=== PATIENT | male | born 1965 | race Caucasian/White ===

== ENCOUNTER 2017-03-23 08:27 | Emergency (ER) | payer OTHER ==
[2017-03-23 08:37] VITALS: BP 155/87; PULSE 81; TEMP 98.1; BMI 26.9
--- NOTE | 2017-03-23 08:41 | PDOC ---
History of Present Illness - General Chief Complaint: Injury Stated Complaint: LT FINGER INJURY Time Seen by Provider: 03/23/17 08:39 History Source: Patient Exam Limitations: No Limitations - History of Present Illness Initial Comments: 03/23/17 08:49 Pt. is a 52 y/o male with no PMH who presents to the ED c/o L 5th finger pain. 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 He states that he was able to finish working , but he feels his finger "popping" when he hyperextends it. Admits to pain in the finger. Denies numbness, tingling, weakness, and decreased range of motion. Past History - Travel Traveled outside of the country in the last 30 days: No Close contact w/someone who was outside of country & ill: No - Past Medical History Allergies/Adverse Reactions: Allergies Allergy/AdvReac Type Severity Reaction Status Date / Time No Known Allergies Allergy Verified 03/23/17 08:35 Home Medications: Ambulatory Orders NK [No Known Home Medication] 10/22/15 Other medical history: denies - Psycho/Social/Smoking Cessation Hx Anxiety: No Suicidal Ideation: No Smoking History: Never smoked Information on smoking cessation initiated: No Hx Alcohol Use: No Drug/Substance Use Hx: No Substance Use Type: None Review of Systems - Review of Systems Able to Perform ROS?: Yes Is the patient limited Kosovan proficient: No Constitutional: No: Chills, Fever, Malaise, Weakness Musculoskeletal: Yes: Joint Pain (L fifth finger), Joint Swelling (L fifth finger) Integumentary: No: Bruising, Lumps, Rash Neurological: No: Numbness, Paresthesia, Weakness All Other Systems: Reviewed and Negative *Physical Exam - Vital Signs Last Vital Signs Temp Pulse Resp BP Pulse Ox 98.1 F 81 18 155/87 98 03/23/17 08:33 03/23/17 08:33 03/23/17 08:33 03/23/17 08:33 03/23/17 08:33 - Physical Exam General Appearance: Yes: Nourished, Appropriately Dressed. 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 Will r/o fracture 1. X-ray L hand 2. Ibuprofen 600mg 3. Re-evaluate 03/23/17 10:40 X-ray is negative for fracture at this time. Probable finger sprain. Placed in splint and given ortho follow up. Will discharge home at this time. Pt. feels comfortable with discharge plans. Pt. understands all discharge instructions and all questions were answered at this time. *DC/Admit/Observation/Transfer Diagnosis at time of Disposition: Sprain of finger of left hand Qualifiers: Encounter type: initial encounter Finger: little finger Sprain of finger site: metacarpophalangeal joint Qualified Code(s): S63.657A - Sprain of metacarpophalangeal joint of left little finger, initial encounter - Discharge Dispostion Disposition: HOME Condition at time of disposition: Good Admit: No - Referrals Referrals: Nathaniel Banuelos MD [Primary Care Provider] - David Williamson MD [Staff Physician] - - Patient Instructions Printed Discharge Instructions: DI for Finger Sprain Additional Instructions: Your x-ray was negative today. It is most likely a sprain. Use ice on the area to reduce swelling. You were given a splint. Wear it for the next few days until your symptoms have resolved. You may take Tylenol or Motrin as needed for pain. You may follow up with orthopedics if your symptoms do not improve. Your blood pressure was elevated today. The reading was 155/80. This could be an isolated, but you should have this checked by your primary care doctor. Return to the ED if you have worsening pain, fevers,chills, or any changes in your symptoms. - Post Discharge Activity Work/School Note: Back to Work
[2017-03-23] MEDS ORDERED: IBUPROFEN 600 MG TABLET (FP) PO ONE ×2 (08:47→08:56)
== END 2017-03-23 09:38 | disposition home or self-care (01) ==
LOC: JER 08:27
DX: S63.657A Sprain of metacarpophalangeal joint of left little finger, initial encounter (principal); X50.0XXA Overexertion from strenuous movement or load, initial encounter; Y93.H9 Activity, other involving exterior property and land maintenance, building and construction; Y92.89 Other specified places as the place of occurrence of the external cause; Y99.0 Civilian activity done for income or pay; R03.0 Elevated blood-pressure reading, without diagnosis of hypertension
CPT/HCPCS: 73130-TC-LT; 99281-25

== ENCOUNTER 2017-04-12 11:48 | Emergency (ER) | payer OTHER ==
[2017-04-12 12:00] VITALS: BP 150/92; PULSE 91; TEMP 98.4; BMI 26.9
[2017-04-12] MEDS ORDERED: DIPHTH,PERTUSS(ACELL),TET 0.5 ML DISP.SYRIN IM ONE (12:34)
--- NOTE | 2017-04-12 12:43 | PDOC ---
History of Present Illness - General Chief Complaint: Injury Stated Complaint: LT LEG LACERATION Time Seen by Provider: 04/12/17 12:18 History Source: Patient Exam Limitations: No Limitations - History of Present Illness Initial Comments: 04/12/17 12:37 History of [email or web address] employee, while collecting garbage had an injury sustained through trash bag, thinks was a ink pen that scratched/lacerated his left mid tibia. States was unable to stop the bleeding and came for evaluation. Uncertain as to his tetanus. 04/12/17 12:43 04/12/17 12:43 Occurred: reports: just prior to arrival Severity: reports: mild Pain Location: reports: lower extremity (left leg) Method of Injury: Yes: direct blow Associated Symptoms (Fall): denies symptoms Past History - Travel Traveled outside of the country in the last 30 days: No Close contact w/someone who was outside of country & ill: No - Past Medical History Allergies/Adverse Reactions: Allergies Allergy/AdvReac Type Severity Reaction Status Date / Time No Known Allergies Allergy Verified 04/12/17 11:54 Home Medications: Ambulatory Orders NK [No Known Home Medication] 10/22/15 Other medical history: denies - Suicide/Smoking/Psychosocial Hx Smoking History: Never smoked Information on smoking cessation initiated: No Hx Alcohol Use: No Drug/Substance Use Hx: No Substance Use Type: None Trauma Specific PMHX - Complaint Specific PMHX Back Injury: No Neck Injury: No Review of Systems - Review of Systems Able to Perform ROS?: Yes Is the patient limited Ecuadorean proficient: Yes Constitutional: Yes: Symptoms Reported, See HPI HEENTM: No: Symptoms Reported Respiratory: No: Symptoms reported Musculoskeletal: Yes: Symptoms Reported, See HPI, Joint Pain Integumentary: Yes: Symptoms Reported, See HPI All Other Systems: Reviewed and Negative *Physical Exam - Vital Signs Last Vital Signs Temp Pulse Resp BP Pulse Ox 98.4 F 91 H 18 150/92 100 04/12/17 11:51 04/12/17 11:51 04/12/17 11:51 04/12/17 11:51 04/12/17 11:51 - Physical Exam General Appearance: Yes: Nourished, Appropriately Dressed, Apparent Distress Neck: negative: Tender Musculoskeletal: positive: Normal Inspection. negative: Decreased Range of Motion (strong flexion and extension with neurovascular intact to foot) Extremity: positive: Normal Capillary Refill, Normal Inspection, Normal Range of Motion Integumentary: positive: Normal Color, Dry, Pale, Other (2cm lac mid-point tibial spine. 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, Fully Oriented, Alert, Normal Mood/ Affect, Normal Response, Motor Strength 5/5 Procedures - Laceration/Wound Repair Left Anterior Leg Wound Length: to 2.5 cm Wound Explored: clean Wound's Depth, Shape: into muscle, linear Irrigated w/ Saline: Yes Betadine Prep: Yes Anesthesia: 1% Lidocaine Wound Repaired With: Sutures Suture Size/Type: 4:0 Number of Sutures: 3 Layer Closure: No Sterile Dressing Applied: Yes Progress Note - Progress Note Progress Note: Leg laceration repaired, tetanus/diphtheria/pertussis booster updated today *DC/Admit/Observation/Transfer Diagnosis at time of Disposition: Leg laceration Qualifiers: Encounter type: initial encounter Laterality: left Qualified Code(s): S81.812A - Laceration without foreign body, left lower leg, initial encounter - Discharge Dispostion Disposition: HOME Condition at time of disposition: Stable Admit: No - Patient Instructions Printed Discharge Instructions: DI for Laceration Repair -- Simple Additional Instructions: Rest, elevate, avoid strenuous activity or heavy lifting until sutures are removed Leave dressing on for the next 24 hours, Then may remove dressing gently and wash area with soap and water. Reapply bacitracin ointment and dressing daily for the next 5 days On day #6 keep the wound protected and cover as needed until sutures are removed allowing wound to start to dry May use Tylenol or Motrin for pain relief Suture removal in :10 Days You received her tetanus/diphtheria/pertussis booster today - Post Discharge Activity Forms/Work/School Notes: Back to Work
== END 2017-04-12 12:54 | disposition home or self-care (01) ==
LOC: JERFT 11:48
PROC: 3E0234Z Introduction of Serum, Toxoid and Vaccine into Muscle, Percutaneous Approach (ICD-10-PCS; principal; 2017-04-12)
PROC: 0JQP0ZZ Repair Left Lower Leg Subcutaneous Tissue and Fascia, Open Approach (ICD-10-PCS; 2017-04-12)
DX: S81.812A Laceration without foreign body, left lower leg, initial encounter (principal); W26.8XXA Contact with other sharp object(s), not elsewhere classified, initial encounter; Y93.H9 Activity, other involving exterior property and land maintenance, building and construction; Y92.89 Other specified places as the place of occurrence of the external cause; Y99.0 Civilian activity done for income or pay
CPT/HCPCS: 90715; 99281-25

== ENCOUNTER 2018-08-26 10:43 | Emergency (ER) | payer BC | END 2018-08-26 13:13 | disposition home or self-care (01) | LOC: JERFT 10:43 ==

== ENCOUNTER 2020-06-14 04:40 | Emergency (ER) | payer BC ==
[2020-06-14 04:50] VITALS: BMI 30.8
[2020-06-14] MEDS ORDERED: IBUPROFEN 600 MG TABLET (FP) PO ONE ×2 (05:17→05:31)
[2020-06-14] MEDS ORDERED: MAG HYDROX/ALH/SMC/DPHA/LIDO 240 ML MOUTHWASH MM ONE (05:19)
[2020-06-14] MEDS ORDERED: DEXAMETHASONE 4 MG TABLET (FP) PO ONE ×2 (05:22→05:29)
[2020-06-14] MEDS ORDERED: DEXAMETHASONE 4 MG TABLET (FP) ONE (05:31)
[2020-06-14] MEDS ORDERED: MAG HYDROX/ALH/SMC/DPHA/LIDO 240 ML MOUTHWASH MM SCH (06:00)
[2020-06-14] MEDS ORDERED: PENICILLIN G BENZATHINE 1,200,000 UNIT/2 ML PFS IM ONE ×2 (06:18→06:22)
[2020-06-14 06:52] VITALS: BP 132/89; PULSE 80; TEMP 98.9
== END 2020-06-14 06:52 | disposition home or self-care (01) ==
LOC: JER 04:40
DX: H92.02 Otalgia, left ear (principal); J02.0 Streptococcal pharyngitis
CPT/HCPCS: 87880; 99284-25

== ENCOUNTER 2022-10-10 05:30 | Day surgery (SDC) | payer BC ==
[2022-10-06 08:43] VITALS: BMI 30.2
[2022-10-10 09:08] VITALS: BP 117/74; PULSE 66; RESP 21
[2022-10-10 11:17] VITALS: TEMP 100
== END 2022-10-10 09:20 | disposition home or self-care (01) ==
LOC: JASU-ENDO 05:30
PROVIDERS: ATTEND Student in an Organized Health Care Education/Training Program
PROC: 0DJD8ZZ Inspection of Lower Intestinal Tract, Via Natural or Artificial Opening Endoscopic (ICD-10-PCS; principal; 2022-10-10 09:30)
DX: K57.30 Diverticulosis of large intestine without perforation or abscess without bleeding (principal)